=== PATIENT | male | born 1955 | race Two or more races ===

== ENCOUNTER 2016-10-21 16:11 | Inpatient (IN) | payer BC, OTHER ==
[~2016-10-21] VITALS: Ht 186.7 cm; Wt 98.5 kg
--- NOTE | 2016-10-21 16:39 | ERA ---
ER Documentation Chief Complaint Date/Time DATE: 10/21/16 TIME: 16:27 Chief Complaint HPI 61-year-old male with history of gout and left bundle branch block and syncope presents to the ED via rescue ambulance from his [employer], Dr Esparza, for evaluation of shortness of breath and heart block. Patient was actually scheduled for pacemaker placement tomorrow. Over the last week he has noticed intermittent episodes of chest heaviness with shortness of breath, exertional dyspnea and occasional PND. Currently asymptomatic. Denies abdominal pain, nausea, vomiting, diarrhea or constipation. No URI symptoms or cough. No leg pain or swelling. Denies headache, visual changes, focal weakness or numbness. No fevers or chills. ROS All systems reviewed and are negative except as per history of present illness. Medications Home Meds No Active Prescriptions or Reported Meds Allergies Allergies: Coded Allergies: No Known Allergy (Unverified , 10/21/16) PMhx/Soc Reviewed in chart. As per HPI. Anesthesia Reaction: No Hx Neurological Disorder: Yes (Syncope) Hx Respiratory Disorders: Yes Hx Cardiac Disorders: Yes (Left bundle branch block.) Hx Psychiatric Problems: No Hx Miscellaneous Medical Probl: Yes (Gout) Hx Alcohol Use: Yes (Wine, moderate intake for approximately 20 years.) Hx Substance Use: No Hx Tobacco Use: Yes Smoking Status: Current every day smoker (Less than a pack a day for over 20 years.) FmHx Father: of an NV at the age of 62. Mother: in her late 80s, dementia. No family history of cancer or diabetes. Physical Exam Vitals Vital Signs Date Time Temp Pulse Resp B/P Pulse Ox O2 Delivery O2 Flow Rate FiO2 10/21/16 18:25 37 18 135/67 100 Room Air 10/21/16 16:37 97.9 39 20 123/73 98 Physical Exam Const: Alert, moderate distress. Head: Atraumatic Eyes: Normal Conjunctiva ENT: Normal External Ears, Nose and Mouth. Neck: Full range of motion. No JVD. No meningismus. Resp: Breath sounds are equal and clear to auscultation bilaterally. No rales rhonchi or wheezes. Cardio: Bradycardic. Regular rate and rhythm, no murmurs, gallops or rubs. Abd: Soft, non tender, non distended. Normal bowel sounds. No masses or abnormal pulsations. No rebound or guarding. Skin: No petechiae or rashes Back: No midline or flank tenderness Ext: No cyanosis, or edema Neur: Awake and alert. No focal deficit observed. Psych: Normal Mood and Affect Result Diagram: 10/21/16 1640 10/22/16 0505 Results 24 hrs Laboratory Tests Test 10/21/16 16:40 White Blood Count 12.310^3/ul Red Blood Count 4.8410^6/ul Hemoglobin 14.2g/dl Hematocrit 42.3% Mean Corpuscular Volume 87.4fl Mean Corpuscular Hemoglobin 29.3pg Mean Corpuscular Hemoglobin Concent 33.6g/dl Red Cell Distribution Width 12.8% Platelet Count 15068^3/UL Mean Platelet Volume 11.4fl Neutrophils % 38.0% Band Neutrophils % 1.0% Lymphocytes % 53.0% Monocytes % 5.0% Eosinophils % 3.0% Neutrophils # 4.710^3/ul Lymphocytes # 6.510^3/ul Monocytes # 0.610^3/ul Eosinophils # 0.410^3/ul Platelet Estimate PLT APPEAR ADEQUATE Large Platelets RARE Prothrombin Time 12.8Sec Prothrombin Time Ratio 1.0 INR International Normalized Ratio 0.96 Activated Partial Thromboplast Time 33.2Sec Sodium Level 142mmol/L Potassium Level 3.9mmol/L Chloride Level 106mmol/L Carbon Dioxide Level 22mmol/L Anion Gap 18 Blood Urea Nitrogen 16mg/dl Creatinine 1.11mg/dl Glucose Level 104mg/dl Calcium Level 9.1mg/dl Magnesium Level 1.8mg/dl Total Bilirubin 0.4mg/dl Direct Bilirubin 0.00mg/dl Indirect Bilirubin 0.4mg/dl Aspartate Amino Transf (AST/SGOT) 75IU/L Alanine Aminotransferase (ALT/SGPT) 140IU/L Alkaline Phosphatase 48IU/L Troponin I < 0.012ng/ml Total Protein 7.0g/dl Albumin 4.1g/dl Globulin 2.90g/dl Albumin/Globulin Ratio 1.41 Ethyl Alcohol Level < 10.0mg/dl RHYTHM STRIP INTERPRETATION: Time: 16:30. A-V dissociation. Ventricular rate 40. No ectopy. Indication: Shortness of breath. EKG: TIME: 16: 15. Complete heart block with AV dissociation and idioventricular rhythm. Ventricular rate 39. Right bundle branch block. No acute ST segment elevation or depression. No ectopy. EP Interpretation: Abnormal EKG. IMAGING: PROCEDURE: Chest Radiograph. CLINICAL INDICATION: Chest pain TECHNIQUE: Single frontal chest radiograph. COMPARISON: None available FINDINGS: A pacer pad is seen overlying the left hemithorax. Heart size is within normal limits. Atherosclerotic calcifications are present. No infiltrate or effusion is seen. The bones are intact. IMPRESSION: 1. No evidence of acute cardiopulmonary disease. 2. Atherosclerotic vascular disease. RPTAT: HJBF .Dino Casanova MD, MD Date Time Electronically viewed and signed by .Dino Casanova MD, on 2016 17:04 .B/ Procedures/MDM DOCUMENTS REVIEWED: ED nurse, office notes. ED COURSE: IV saline lock. External pacer on standby. REEXAMINATION/REEVALUATION: Time: 16:55. Patient complaining of mild chest heaviness and mild dyspnea. Heart rate is 38. Blood pressure:134/78. Repeat EKG at 17: 03 essentially unchanged. Complete heart block with idioventricular rhythm at a rate of 38. Right bundle branch block. No acute ST-T wave changes. No ectopy. MEDICAL DECISION MAKIN-year-old male with history of gout and left bundle branch block and syncope presents to the ED via rescue ambulance from his [employer], Dr Esparza, for evaluation of shortness of breath and heart block. Patient in complete heart block with AV dissociation and idioventricular rhythm although is maintaining his blood pressure. No ischemic EKG changes, elevated troponin or other signs of acute coronary syndrome. Patient does not take any beta-blockers or calcium channel blockers. No acute electrolyte abnormalities. An external pacer was placed on standby. Chest pain and shortness of breath likely due to bradycardia but no ischemic EKG changes or elevated troponin. Chest x-ray is normal without effusions or infiltrates. Doubt pulmonary embolism. He will be admitted to the ICU for urgent pacemaker placement, further evaluation and management. Counseled patient and family regarding diagnosis, diagnostic results and plan for admission. CALLS/CONSULTS: Time 16:30, Dr. Cruz, Recommends admission to ICU, will consult. CALLS/CONSULTS: Time 16:350, Dr Estrella. Requests patient be admitted to Dr. Grubbs. PATIENT CARE TRANSITIONED: Time: 16:55, Dr. Grubbs. CRITICAL CARE TIME: Due to the high probability of sudden clinically significant hemodynamic, cardiovascular and respiratory deterioration, this patient with complete heart block with AV disassociation required multiple, frequent reevaluations of vital signs and response to therapy. Additional critical care time was spent in review of office records and consultation with cardiology, Dr. Cruz, Dr. Estrella and the admitting physician Dr. Grubbs. TOTAL CRITICAL CARE TIME: 35 minutes not including other separately reportable procedures. Departure Diagnosis: Primary Impression: Complete heart block Additional Impressions: AV dissociation Idioventricular rhythm Chest pain Qualified Code: R07.9 - Chest pain, unspecified type Condition: Critical CYNTHIA CHOI MD October 21, 2016 16:39
[2016-10-21 16:53] LABS: ADD SCAN DIFF NO
[2016-10-21 17:02] LABS: ABNORMAL IP MESSAGE 1; HEMATOCRIT 42.3 % (42.0-52.0); HEMOGLOBIN 14.2 g/dl (14.0-18.0); MEAN CORPUSCULAR HEMOGLOBIN 29.3 pg (29.0-33.0); MEAN CORPUSCULAR HGB CONC 33.6 g/dl (32.0-37.0); MEAN CORPUSCULAR VOLUME 87.4 fl (82.0-101.0); MEAN PLATELET VOLUME 11.4 fl (7.4-10.4); PLATELET COUNT 193 10^3/UL (140-415); RED BLOOD COUNT 4.84 10^6/ul (4.70-6.10); RED CELL DISTRIBUTION WIDTH 12.8 % (11.5-14.5); WHITE BLOOD COUNT 12.3 10^3/ul (4.8-10.8)
--- NOTE | 2016-10-21 17:05 | RADRPT ---
PROCEDURE: Chest Radiograph. CLINICAL INDICATION: Chest pain TECHNIQUE: Single frontal chest radiograph. COMPARISON: None available FINDINGS: A pacer pad is seen overlying the left hemithorax. Heart size is within normal limits. Atheroscler otic calcifications are present. No infiltrate or effusion is seen. The bones are intact. IMPRESSION: 1. No evidence of acute cardiopulmonary disease. 2. Atherosclerotic vascular disease. RPTAT: HJBF .Dino Casanova MD, MD Date Time Electronically viewed and signed by .Dino Casanova MD, MD on 10/21/2016 17:04 .B/
[2016-10-21 17:15] LABS: ALBUMIN 4.1 g/dl (3.3-4.9); CHLORIDE 106 mmol/L (97-110)
[2016-10-21 17:16] LABS: INR 0.96; POTASSIUM 3.9 mmol/L (3.5-5.1); PROTIME 12.8 Sec (12.2-14.2); SODIUM 142 mmol/L (135-144)
[2016-10-21 17:17] LABS: PARTIAL THROMBOPLASTIN TIME 33.2 Sec (25.0-35.0)
[2016-10-21 17:18] LABS: ALBUMIN/GLOBULIN RATIO 1.41; ALKALINE PHOSPHATASE 48 IU/L (42-121); ANION GAP 18 (8-16); ASPARTATE AMINO TRANSFERASE 75 IU/L (15-46); BILIRUBIN,INDIRECT 0.4 mg/dl (0-1.1); BILIRUBIN,TOTAL 0.4 mg/dl (0.2-1.3); BLOOD UREA NITROGEN 16 mg/dl (7-20); CARBON DIOXIDE 22 mmol/L (21-31); CREATININE 1.11 mg/dl (0.61-1.24)
[2016-10-21 17:19] LABS: ALANINE AMINOTRANSFERASE 140 IU/L (13-69); CALCIUM 9.1 mg/dl (8.4-10.2); GLUCOSE 104 mg/dl (70-220)
[2016-10-21 17:37] LABS: TROPONIN-I < 0.012 ng/ml (0.00-0.12)
[2016-10-21] MEDS ORDERED: ONDANSETRON 4 MG INJ IV PRN (19:00)
[2016-10-21] MEDS ORDERED: ZOLPIDEM 5 MG TAB PO PRN (19:00)
[2016-10-21 19:22] LABS: EOSINOPHILS # 0.4 10^3/ul (0.0-0.5); LYMPHOCYTES # 6.5 10^3/ul (0.8-2.9); MONOCYTE # 0.6 10^3/ul (0.3-0.9); NEUTROPHIL # 4.7 10^3/ul (1.6-7.5)
[2016-10-21 19:23] LABS: PLATELET ESTIMATE PLT APPEAR ADEQUATE
[2016-10-21] MEDS ORDERED: ATROPINE 1 MG/10 ML SYRINGE IV ONE (20:00)
[2016-10-21 21:07] VITALS: PULSE 40
[2016-10-21 21:25] VITALS: Ht 186.7 cm; Wt 98.5 kg
[2016-10-21] MEDS: D5W-0.45 NACL + KCL 20 MEQ 1,000 ML IV SCH (21:59)
[2016-10-21 22:00] VITALS: BP 128/68; PULSE 42; RESP 27
--- NOTE | 2016-10-21 22:29 | CONS ---
DATE OF ADMISSION: 10/21/2016 DATE OF CONSULTATION: 10/21/2016 REASON FOR CONSULTATION: Heart block with bradycardia. REQUESTING PHYSICIAN: Dr. Ayala, Dr. Banegas. HISTORY OF PRESENT ILLNESS: Mr. De La Fuente is a 61-year-old male with a history of ongoing tobacco usa ge, current episodes of syncope, and allergic rhinitis who had noted to have recurring episodes of s yncope dating back to 05/2016 for which he was evaluated in the emergency department at [place] and was told that he did have a slow heart rate and pauses, but did not want to stay at the hospital. T he patient then states that he has had recurrent syncopal episodes, as recently a month ago x2 to 3 [address] his house. Each time, he states that he feels a general bowen of blood over his body, gener alized weakness, and then loses consciousness. Additionally, over the last 2 to 3 days, the patient has had some episodes of substernal chest pain described as a pressure-like sensation associated wi th shortness of breath and generalized fatigue. The patient states he noticed 2 to 3 days ago his h eart rate was approximately 40 and was not changing. Therefore, he presented to his primary cardiol ogist's office where he was referred to the emergency department here at [facility]. Upon arrival, temperature 97.9, pulse 39, blood pressure 123/73, respiratory rate 22, saturating 98%. Th e patient's labs revealed white count 12.3, hemoglobin 14.2, platelet count 193. The sodium 142, po tassium 3.9, creatinine 1.1, BUN 16, AST 75, ALT 140. Troponin negative. INR 0.96. Tox screen neg ative. The patient underwent a chest x-ray revealing no evidence of acute cardiopulmonary disease, atherosclerotic vascular disease. The patient's electrocardiogram revealed rhythm most consistent w ith, on EKG at least, complete heart block with escape rhythm at approximately 40 with a right bundl e branch block pattern secondary to repolarization abnormalities. Additionally, on telemetry, the p atient has had episodes of 2:1 AV block with heart rates still in the 40s and additional ongoing epi sodes of complete heart block with AV disassociation. The patient at this time states he has some i ntermittent episodes of chest pain. PAST MEDICAL HISTORY: As above in HPI. MEDICATIONS CURRENTLY IN HOSPITAL: 1. Tylenol. 2. Ambien. 3. Zofran. MEDICATIONS PRIOR TO ADMIT: 1. Aspirin. 2. Flonase. 3. PRN Viagra. SOCIAL HISTORY: Ongoing tobacco usage, social ETOH, no illicit drug use. FAMILY HISTORY: No history of sudden cardiac or early CAD. REVIEW OF SYSTEMS: As above in HPI. CONSTITUTIONAL: No fevers, chills. PULMONARY: Intermittent shortness of breath. CARDIOVASCULAR: Heart block, symptomatic bradycardia. GASTROINTESTINAL: No vomiting. GENITOURINARY: No hematuria. MUSCULOSKELETAL: Degenerative joint disease. PSYCHIATRIC: No documented psych history. NEUROLOGIC: No documented history of CVA. Positive recurrent episodes of syncope. PHYSICAL EXAMINATION: VITAL SIGNS: Temperature 97.9, blood pressure 135/67, pulse 37, respiratory 18, saturation 100%. GENERAL: The patient is alert, awake, complaining of intermittent substernal chest pain. NECK: JVP approximately 8 to 9 cm water. CHEST: Fair air movement throughout. HEART: Bradycardic. Regular rhythm. Normal S1, S2, I/ systolic murmur. ABDOMEN: Positive bowel sounds, soft. EXTREMITIES: No pitting edema, 1+ pulses bilaterally posterior tibial. LABORATORY DATA: As above in HPI. No further labs for my review at this time. IMAGING STUDIES: As above in HPI. No further imaging studies for my review at this time. ELECTROCARDIOGRAM: As above in HPI. No further electrocardiograms for my review at this time. IMPRESSION: 1. Heart block with episodes 2:1 block and complete heart block as well and escape rhythm in approx imately high 30s to 40s consistent with symptomatic bradycardia. 2. Chest pain, assess for acute coronary syndrome. 3. Shortness of breath, assess for congestive heart failure likely related to the patient's bradyca rdia. 4. Abnormal electrocardiogram, assess for acute coronary syndrome. 5. Hypertension, borderline. 6. Ongoing tobacco usage. 7. Bundle branch block. RECOMMENDATIONS: 1. At this time, would admit patient to ICU for close observation. 2. Would complete a rule out for myocardial infarction to ensure that the patient's chest pain is n ot indicative of acute coronary syndrome lending to the patient's constellation of symptoms. 3. We will continue to check serial EKGs to assess for any significant ongoing changes. EKG in the morning, EKG for complaints of chest pain or change in rhythm. 4. Check a 2D echocardiogram to further assess patient's ejection fraction, wall motion, and major valve abnormalities. 5. Check a BNP to further assess patient's current volume status. 6. Follow the patient's LFTs closely, elevated. 7. Maintain the patient's pacer pads with a backup rate, but would not initiate pacing on this dinora ent unless patient becomes more symptomatic at rest, as the patient is awake with stable blood press ure. 8. Atropine at bedside. 9. NPO after midnight with the patient scheduled for permanent pacemaker to take place first thing tomorrow. 10. Additionally, check a TSH to rule out subclinical hypothyroidism contributing to the patient's current bradyarrhythmias. Thank you for allowing me to take part in the care of this patient. I will continue to follow him [place] closely with you with further recommendations to be made as the patient progresses through his [facility] clinical course. Dictated By: DAVID CHRISTIE/YAYA Conf#: [id number] DID#: [id number] CC: TIFFANIE AYALA MD; Dr. Banegas; ZENIA GRAHAM MD;*End*
[2016-10-21 22:40] LABS: CREATINE KINASE 62 IU/L (23-200)
[2016-10-21 22:56] LABS: CK-MB 0.56 ng/ml (0.0-2.4); TROPONIN-I < 0.012 ng/ml (0.00-0.12)
[2016-10-21 23:00] VITALS: BP 144/59; PULSE 37; RESP 15
[2016-10-22] VITALS (36 sets, daily range): BP systolic 82–176; BP diastolic 44–138; PULSE 35–90; RESP 11–35
--- NOTE | 2016-10-22 03:22 | HP ---
DATE OF ADMISSION: 10/21/2016 HISTORY OF PRESENT ILLNESS: The patient is a 61-year-old gentleman with a history of syncope in the past and is being followed by Dr. Banegas from cardiology standpoint. The patient was feeling weak a nd slightly dizzy and was sent to ER at [facility]. The patient was noted to be i n complete heart block with ventricular rate in the 30s. The patient, however, maintained her vital signs and did not have any chest pain. The patient did feel slight lightheadedness. No reported s eizures. No history of thyroid disorder. No history of diabetes, hypertension, or any known martines ry artery disease. The patient denied any history of shortness of breath on exertion. No reported leg edema. No reported orthopnea. The patient ____ for further evaluation and management. PAST SURGICAL HISTORY: None. ALLERGIES: NONE. SOCIAL HISTORY: The patient smokes 4 to 5 cigarettes per day. No significant history of alcohol. PAST MEDICAL HISTORY: The patient has history of gout but has not had any flare-up recently and is not on any medication for that. FAMILY HISTORY: Noncontributory. PHYSICAL EXAMINATION: GENERAL: The patient is conscious, awake, alert. VITAL SIGNS: In the ER, blood pressure 123/73, pulse 39, respirations 20, temperature 97.9, O2 satu ration 98% on room air. HEENT: No eye discharge or redness. Oropharynx clear. NECK: No mass, no lymph, no thyromegaly. CHEST: Fairly clear. CARDIOVASCULAR: S1, S2 normal. No murmur. ABDOMEN: Soft, nondistended, nontender. Bowel sounds present. EXTREMITIES: No leg edema. NEUROLOGIC: The patient is awake, alert, fairly oriented with no gross focal deficit. LABORATORY DATA: WBC 12.3, hemoglobin 14.2, platelets 193. Sodium 142, potassium 3.9, BUN 16, crea tinine 1.1, glucose 104. Coagulation profile unremarkable. IMPRESSION: Complete heart block. PLAN: Plan of care discussed with Dr. Estrella who will see the patient from cardiac standpoint. Pl an is to take him to OR tomorrow for permanent pacemaker placement which will be done by Dr. Douglas Medina. We will continue supportive care until then. The patient will be admitted in ICU due to comp lete heart block. Further recommendations will depend on the patient's hospital course. We will do followup CBC. The patient did have slight elevation of liver enzymes on chemistry with AST of 75, ALT of 140, alkaline phosphatase is normal. Troponin is negative. We will do followup labs in the morning. Dictated By: ZENIA KRISHNA/YAYA Conf#: [id number] DID#: [id number]
[2016-10-22 05:30] LABS: ADD SCAN DIFF NO
[2016-10-22 05:54] LABS: ALBUMIN 3.6 g/dl (3.3-4.9); ALBUMIN/GLOBULIN RATIO 1.28; BILIRUBIN,INDIRECT 0.2 mg/dl (0-1.1); BILIRUBIN,TOTAL 0.2 mg/dl (0.2-1.3); CALCIUM 8.8 mg/dl (8.4-10.2); CHOL/HDL RATIO 7.8 RATIO; CREATININE 1.07 mg/dl (0.61-1.24); POTASSIUM 4.5 mmol/L (3.5-5.1); TOTAL PROTEIN 6.4 g/dl (6.1-8.1)
[2016-10-22 06:01] LABS: INR 0.92; PROTIME 12.4 Sec (12.2-14.2)
[2016-10-22 06:02] LABS: PARTIAL THROMBOPLASTIN TIME 25.2 Sec (25.0-35.0)
[2016-10-22 06:08] LABS: TROPONIN-I 0.017 ng/ml (0.00-0.12)
[2016-10-22 06:09] LABS: CK-MB 0.53 ng/ml (0.0-2.4)
[2016-10-22 06:23] LABS: THYROID STIMULATING HORMONE 2.78 MIU/L (0.465-4.680)
[2016-10-22] MEDS: ACETAMINOPHEN 500 MG TAB PO PRN ×2 (07:28→07:29)
[2016-10-22] MEDS ORDERED: POLYMYXIN/BACITRACIN 1L IRRIG IRR SCH (08:00)
[2016-10-22] MEDS: D5W-0.45 NACL + KCL 20 MEQ 1,000 ML IV SCH ×2 (08:20→11:18)
[2016-10-22 10:21] LABS: ABNORMAL IP MESSAGE 1; BASOPHIL # 0.1 10^3/ul (0.0-0.1); BASOPHILS % 0.6 % (0.0-2.0); EOSINOPHILS # 0.3 10^3/ul (0.0-0.5); EOSINOPHILS % 3.1 % (0.0-7.0); HEMATOCRIT 40.2 % (42.0-52.0); HEMOGLOBIN 13.3 g/dl (14.0-18.0); LYMPHOCYTES # 5.9 10^3/ul (0.8-2.9); LYMPHOCYTES % 57.2 % (15.0-51.0); MEAN CORPUSCULAR HEMOGLOBIN 29.9 pg (29.0-33.0); MEAN CORPUSCULAR HGB CONC 33.1 g/dl (32.0-37.0); MEAN CORPUSCULAR VOLUME 90.3 fl (82.0-101.0); MEAN PLATELET VOLUME 12.6 fl (7.4-10.4); MONOCYTE # 0.8 10^3/ul (0.3-0.9); MONOCYTES % 7.9 % (0.0-11.0); NEUTROPHIL # 3.2 10^3/ul (1.6-7.5); RED BLOOD COUNT 4.45 10^6/ul (4.70-6.10); RED CELL DISTRIBUTION WIDTH 12.8 % (11.5-14.5); WHITE BLOOD COUNT 10.3 10^3/ul (4.8-10.8)
[2016-10-22 10:24] LABS: PLATELET COUNT 139 10^3/UL (140-415)
--- NOTE | 2016-10-22 10:44 | CONS ---
Date/Time of Note Date/Time of Note DATE: 10/22/16 TIME: 10:35 Assessment/Plan Assessment/Plan Chief Complaint/Hosp Course IMPRESSION: 1. Heart block with episodes 2:1 block and complete heart block as well and escape rhythm in approximately high 30s to 40s with symptomatic bradycardia. 2. Chest pain, assess for acute coronary syndrome.-negative troponin x 3/ improved symptoms 3. Shortness of breath, assess for congestive heart failure likely related to the patient's bradycardia. 4. Abnormal electrocardiogram, assess for acute coronary syndrome. 5. Hypertension, borderline. 6. Ongoing tobacco usage. 7. Bundle branch block. Recc: -Tele -serial ecg's -For PPM today Problems: Consultation Date/Type/Reason Admit Date/Time October 21, 2016 at 18:55 Initial Consult Date 10/21/2016 Type of Consultation: Cardiology Reason for Consultation Heart Block Referring Provider: OLGA MCCRAY MD Exam/Review of Systems Vital Signs Vitals Vital Signs Date Time Temp Pulse Resp B/P Pulse Ox O2 Delivery O2 Flow Rate FiO2 10/22/16 09:30 36 16 96 10/22/16 09:00 144/76 10/22/16 06:00 Room Air 10/22/16 04:00 97.8 Intake and Output 10/21/16 10/21/16 10/22/16 15:00 23:00 07:00 Intake Total 270 ml 525 ml Output Total 325 ml 400 ml Balance -55 ml 125 ml Exam Review of Systems: CONSTITUTIONAL: No fevers, chills. PULMONARY: No sob CARDIOVASCULAR: No chest pain/palpitations GASTROINTESTINAL: No nausea/vomiting. GENITOURINARY: No hematuria/dysuria. MUSCULOSKELETAL: No myagias/arthalgias. PSYCHIATRIC: The patient denies depression. NEUROLOGIC: mild generalized weakness Constitutional: alert Psych: no complaints Head: normocephalic ENMT: mucosa pink and moist Neck: jvd (8 -9 cm water), supple Respiratory: clear to auscultation Cardiovascular: other (bradycardia, regular rhythm) Gastrointestinal: non-tender, soft Musculoskeletal: muscle tone (normal) Extremities: edema (none) Neurological: other (No focal deficits) Results Result Diagram: 10/22/16 0505 10/22/16 0508 Results 24 hrs Laboratory Tests Test 10/21/16 16:40 10/21/16 22:11 10/22/16 05:05 White Blood Count 12.3 H 10.3 Red Blood Count 4.84 4.45 L Hemoglobin 14.2 13.3 L Hematocrit 42.3 40.2 L Mean Corpuscular Volume 87.4 90.3 Mean Corpuscular Hemoglobin 29.3 29.9 Mean Corpuscular Hemoglobin Concent 33.6 33.1 Red Cell Distribution Width 12.8 12.8 Platelet Count 193 139 #L Mean Platelet Volume 11.4 H 12.6 H Neutrophils % 38.0 L 31.0 L Band Neutrophils % 1.0 Lymphocytes % 53.0 H 57.2 H Monocytes % 5.0 7.9 Eosinophils % 3.0 3.1 Neutrophils # 4.7 3.2 Lymphocytes # 6.5 H 5.9 H Monocytes # 0.6 0.8 Eosinophils # 0.4 0.3 Platelet Estimate PLT APPEAR ADEQUATE Large Platelets RARE Prothrombin Time 12.8 12.4 Prothrombin Time Ratio 1.0 1.0 INR International Normalized Ratio 0.96 0.92 Activated Partial Thromboplast Time 33.2 25.2 Sodium Level 142 138 Potassium Level 3.9 4.5 Chloride Level 106 111 H Carbon Dioxide Level 22 22 Anion Gap 18 H 10 # Blood Urea Nitrogen 16 19 Creatinine 1.11 1.07 Glucose Level 104 107 Calcium Level 9.1 8.8 Magnesium Level 1.8 Total Bilirubin 0.4 0.2 Direct Bilirubin 0.00 0.00 Indirect Bilirubin 0.4 0.2 Aspartate Amino Transf (AST/SGOT) 75 H 73 H Alanine Aminotransferase (ALT/SGPT) 140 H 122 H Alkaline Phosphatase 48 37 L Troponin I < 0.012 < 0.012 0.017 Total Protein 7.0 6.4 Albumin 4.1 3.6 Globulin 2.90 2.80 Albumin/Globulin Ratio 1.41 1.28 Ethyl Alcohol Level < 10.0 Creatine Kinase 62 66 Creatine Kinase Index 0.9 0.8 Creatinine Kinase MB (Mass) 0.56 0.53 Basophils % 0.6 Nucleated Red Blood Cells % 0.0 Basophils # 0.1 Nucleated Red Blood Cells # 0.0 Triglycerides Level 267 H Cholesterol Level 150 LDL Cholesterol, Calculated 78 HDL Cholesterol 19 L Cholesterol/HDL Ratio 7.8 Thyroid Stimulating Hormone (TSH) 2.780 Medications Medications Current Medications Acetaminophen 500 mg 500 mg Q4H PRN PO PAIN AND OR ELEVATED TEMP Last administered on 10/22/16 07:29; Admin Dose 500 MG; Start 10/21/16 at 19:00 Potassium Chloride/Dextrose/ Sod Cl (D5-1/2ns + KCl 20 Meq) 1,000 ml @ 75 mls/ hr [id number] IV Last administered on 10/21/16 21:59; Admin Dose 75 MLS/HR; Start 10/21/16 at 19:00 Zolpidem Tartrate (Ambien) 5 mg HS PRN PO INSOMNIA Last administered on 23:46; Admin Dose 5 MG; Start 10/21/16 at 19:00 Ondansetron HCl (Zofran Inj) 4 mg Q6H PRN IV NAUSEA AND/OR VOMITING; Start 10/21 at 19:00 Bacitracin/ Polymyxin B Sulfate (Pb Solution) 1,000 ml ONCE IRR ; Start 10/22/16 at 08:00; Stop 10/22/16 at 13:00 DAVID GAGE October 22, 2016 10:44
[2016-10-22] MEDS ORDERED: EPHEDrine SULFATE 50 MG/5 ML SYG IV PRN ×2 (12:30→17:00)
[2016-10-22] MEDS ORDERED: MEPERIDINE 25 MG INJ IV PRN (12:30)
[2016-10-22] MEDS ORDERED: FENTAnyl 50 MCG/ML VIAL IV PRN ×3 (12:30)
[2016-10-22] MEDS ORDERED: hydrALAzine 20 MG INJ IV PRN ×2 (12:30→17:00)
[2016-10-22] MEDS ORDERED: LABETALOL HCL 20MG INJ IV PRN (12:30)
[2016-10-22] MEDS ORDERED: ONDANSETRON 4 MG INJ IV PRN ×2 (12:30→17:00)
[2016-10-22] MEDS ORDERED: DIPHENHYDRAMINE 50 MG INJ IV PRN ×2 (12:30→20:30)
[2016-10-22] MEDS ORDERED: FENTAnyl 50 MCG/ML VIAL ONE (12:31)
[2016-10-22] MEDS ORDERED: PROPOFOL 100 ML ONE (12:31)
[2016-10-22] MEDS ORDERED: LIDOCAINE 2% (SDV) 5 ML INJ ONE (12:31)
[2016-10-22] MEDS ORDERED: BUPIVACAINE 0.5% (SDV) 30 ML INJ ONE ×2 (13:41→17:05)
[2016-10-22] MEDS ORDERED: IODIXANOL LOCM 50 ML BTL ONE ×3 (13:41→17:02)
[2016-10-22] MEDS ORDERED: LIDOCAINE 1% (MDV) 20 ML INJ ONE (13:41)
[2016-10-22] MEDS ORDERED: SOD CHLORIDE 0.9% 500 ML ONE (13:41)
[2016-10-22] MEDS ORDERED: CEFAZOLIN 2 GM/50 ML (PMX) 50 ML IVPB ONE (13:41)
--- NOTE | 2016-10-22 14:04 | CONS ---
DATE OF ADMISSION: 10/21/2016 DATE OF CONSULTATION: 10/22/2016 TYPE OF CONSULTATION: Electrophysiology. REFERRING PHYSICIAN: Dr. Zenia Graham and Dr. Banegas REASON FOR EVALUATION: Complete heart block, evaluation for pacemaker. HISTORY OF PRESENT ILLNESS: Mr. De La Fuente is a 61-year-old gentleman with history of hypertension, hi story of congenital left bundle bunch block who was seen by Dr. Banegas in his office yesterday. The patient presented to the office for evaluation of dizziness and fall. The patient was noted to be i n complete heart block and the patient was transferred to [facility] for immediate evaluation. The patient is still in complete heart block, his heart rate is in the mid 30s, he is symptomatic. The patient has class I indication for pacemaker placement. The risks, benefits and al ternatives of procedure have been extensively discussed with the patient and he is agreeable to proc eed. We will facilitate pacemaker placement shortly. PAST MEDICAL HISTORY: 1. History of hypertension. 2. History of congenital left bundle bunch block. 3. Now history of complete heart block. ALLERGIES: NO KNOWN DRUG ALLERGIES. SOCIAL HISTORY: The patient does not smoke, does not drink, does not use any drugs. FAMILY HISTORY: Negative for sudden cardiac . There is history of coronary artery disease. MEDICATIONS: The patient is not on any AV alonso blocking agents. REVIEW OF SYSTEMS: CONSTITUTIONAL: No fevers, no chills. Dizziness and syncope as described. HEENT: No changes in vision or hearing. CARDIAC: No chest pain reported now. RESPIRATORY: No shortness of breath. GASTROINTESTINAL: No nausea, vomiting, diarrhea, constipation. GENITOURINARY: No dysuria, hematuria. NEUROLOGIC: No focal neurologic deficits. HEMATOLOGIC: No bruising. PSYCHIATRIC: No known history of psychiatric illness. PHYSICAL EXAMINATION: VITAL SIGNS: Heart rate is 37 in complete heart block. His blood pressure 130/80. GENERAL: He is a well-nourished gentleman in no acute distress, alert and oriented x3, aware of his condition. HEAD: Normocephalic, atraumatic. Eyes anicteric. NECK: Supple. JVD 6-7 cm. There is no lymphadenopathy or thyromegaly. HEART: Regular, soft. holosystolic murmur mid chest, changes with respiration. PMI is nondisplaced. There is no S3. LUNGS: Coarse at bases. ABDOMEN: Distended, bowel sounds are present. There is no hepatosplenomegaly. GENITOURINARY: Intact. EXTREMITIES: Show no clubbing, cyanosis, edema. SKIN: Does not show any discoloration. NEUROLOGICAL: He is able to move his extremities. LABORATORY DATA: Creatinine 0.7. Troponin is negative. ASSESSMENT AND PLAN: 1. Complete heart block. Patient is in complete heart block, has class I indication for a pacemake r placement. Currently, the patient is hemodynamically stable. Risks, benefits and alternatives of procedure were outlined to the patient, he is agreeable to proceed. We will facilitate the pacemak er placement shortly. 2. Congenital heart disease. The patient has congenital heart disease. There is no obvious muscul ar anomaly. Dr. Estrella will review a 2D echo. For now, will continue medical optimization and care, pacemaker pending. 3. Hypertension. Blood pressure well controlled, will not add any additional agents now given sign ificant bradycardia. 4. Abnormal EKG as described above. Complete heart block, pacemaker is pending. I would like to thank Dr. Banegas and Dr. Graham for referring this patient for my evaluation. Dictated By: TIFFANIE AYALA MD ML/NTS Conf#: [id number] DID#: [id number] CC: OLGA BANEGAS MD; ZENIA GRAHAM MD;*EndCC*
[2016-10-22] MEDS ORDERED: DOPamine-D5W 1.6 MG/ML 250 ML ONE (14:12)
[2016-10-22] MEDS ORDERED: ATROPINE 1 MG/10 ML SYRINGE ONE (14:12)
--- NOTE | 2016-10-22 14:44 | PN ---
Date/Time of Note Date/Time of Note DATE: 10/22/16 TIME: 14:41 Assessment/Plan VTE Prophylaxis VTE Prophylaxis Intervention: SCD's Lines/Catheters IV Catheter Type (from Rust): Saline Lock Urinary Cath still in place: No Assessment/Plan Assessment/Plan - Heart block with episodes 2:1 block and complete heart block as well and escape rhythm in approximately high 30s to 40s with symptomatic bradycardia. Patient is undergoing pacemaker placement by Dr. Cruz, continue to monitor in ICU postoperatively. - Chest pain, assess for acute coronary syndrome. Troponin negative 3. -Tobacco dependence, tobacco cessation is strongly advised. Subjective 24 Hr Interval Summary Free Text/Dictation Patient was taking to or off for permanent pacemaker placement for complete heart block block with bradycardia. No acute events reported prior to procedure patient continued to be monitored in ICU with heart rate being in the 30s. Exam/Review of Systems Vital Signs Vitals Vital Signs Date Time Temp Pulse Resp B/P Pulse Ox O2 Delivery O2 Flow Rate FiO2 10/22/16 12:00 36 10/22/16 11:30 98.1 17 99 10/22/16 11:00 103/65 Room Air Intake and Output 10/21/16 10/21/16 10/22/16 15:00 23:00 07:00 Intake Total 270 ml 600 ml Output Total 325 ml 400 ml Balance -55 ml 200 ml Results Result Diagram: 10/22/16 0505 10/22/16 0505 Results 24 hrs Laboratory Tests Test 10/21/16 16:40 10/21/16 22:11 10/22/16 05:05 White Blood Count 12.3 H 10.3 Red Blood Count 4.84 4.45 L Hemoglobin 14.2 13.3 L Hematocrit 42.3 40.2 L Mean Corpuscular Volume 87.4 90.3 Mean Corpuscular Hemoglobin 29.3 29.9 Mean Corpuscular Hemoglobin Concent 33.6 33.1 Red Cell Distribution Width 12.8 12.8 Platelet Count 193 139 #L Mean Platelet Volume 11.4 H 12.6 H Neutrophils % 38.0 L 31.0 L Band Neutrophils % 1.0 Lymphocytes % 53.0 H 57.2 H Monocytes % 5.0 7.9 Eosinophils % 3.0 3.1 Neutrophils # 4.7 3.2 Lymphocytes # 6.5 H 5.9 H Monocytes # 0.6 0.8 Eosinophils # 0.4 0.3 Platelet Estimate PLT APPEAR ADEQUATE Large Platelets RARE Prothrombin Time 12.8 12.4 Prothrombin Time Ratio 1.0 1.0 INR International Normalized Ratio 0.96 0.92 Activated Partial Thromboplast Time 33.2 25.2 Sodium Level 142 138 Potassium Level 3.9 4.5 Chloride Level 106 111 H Carbon Dioxide Level 22 22 Anion Gap 18 H 10 # Blood Urea Nitrogen 16 19 Creatinine 1.11 1.07 Glucose Level 104 107 Calcium Level 9.1 8.8 Magnesium Level 1.8 Total Bilirubin 0.4 0.2 Direct Bilirubin 0.00 0.00 Indirect Bilirubin 0.4 0.2 Aspartate Amino Transf (AST/SGOT) 75 H 73 H Alanine Aminotransferase (ALT/SGPT) 140 H 122 H Alkaline Phosphatase 48 37 L Troponin I < 0.012 < 0.012 0.017 Total Protein 7.0 6.4 Albumin 4.1 3.6 Globulin 2.90 2.80 Albumin/Globulin Ratio 1.41 1.28 Ethyl Alcohol Level < 10.0 Creatine Kinase 62 66 Creatine Kinase Index 0.9 0.8 Creatinine Kinase MB (Mass) 0.56 0.53 Basophils % 0.6 Nucleated Red Blood Cells % 0.0 Basophils # 0.1 Nucleated Red Blood Cells # 0.0 Triglycerides Level 267 H Cholesterol Level 150 LDL Cholesterol, Calculated 78 HDL Cholesterol 19 L Cholesterol/HDL Ratio 7.8 Thyroid Stimulating Hormone (TSH) 2.780 Medications Medications Current Medications Acetaminophen 500 mg 500 mg Q4H PRN PO PAIN AND OR ELEVATED TEMP Last administered on 10/22/16 07:29; Admin Dose 500 MG; Start 10/21/16 at 19:00 Potassium Chloride/Dextrose/ Sod Cl (D5-1/2ns + KCl 20 Meq) 1,000 ml @ 75 mls/ hr [id number] IV Last administered on 10/22/16 11:18; Admin Dose 75 MLS/HR; Start 10/21/16 at 19:00 Zolpidem Tartrate (Ambien) 5 mg HS PRN PO INSOMNIA Last administered on 23:46; Admin Dose 5 MG; Start 10/21/16 at 19:00 Ondansetron HCl (Zofran Inj) 4 mg Q6H PRN IV NAUSEA AND/OR VOMITING; Start 10/21 at 19:00 EDD GRANADOS October 22, 2016 14:44
[2016-10-22] MEDS ORDERED: SOD CHLORIDE 0.9% 1,000 ML IV SCH (14:53)
[2016-10-22] MEDS ORDERED: DC all Lovenox, Heparing, and Coumadin orders. XX SCH (15:00)
[2016-10-22] MEDS ORDERED: HOLD all METFORMIN and METFORMIN CONTAINING medications for 48 hours post procedure. Chec XX ONE (15:00)
[2016-10-22] MEDS ORDERED: morphine 2 MG INJ IV PRN ×2 (15:00→17:00)
[2016-10-22] MEDS: morphine 2 MG INJ IV PRN (15:57)
--- NOTE | 2016-10-22 16:38 | SP ---
DATE OF PROCEDURE: 10/22/2016 REFERRING PHYSICIAN: Dr. Grubbs and Dr. Banegas. REASON FOR EVALUATION: Complete heart block, symptomatic. PROCEDURE PERFORMED: 1. Emergency temporary pacemaker placement. 2. Single chamber pacemaker placement with fluoroscopy. 3. Upper extremity venogram. DEVICE INFORMATION: Implanted device is [employer] Assurity MRI pacemaker, serial #[id number], minali al #[id number]. RV lead is [employer] Tendril [id number], 58 cm lead, serial #[id number]. Acute t hresholds: R-wave is 9.9 millivolts, impedance 780 ohms, threshold 1.0 volts at 0.4 msec. Initial setting is VVI 70. DESCRIPTION OF PROCEDURE: The informed consent was obtained. The patient was brought into the geoscience laboratory technician in a fasting condition. His heart rate was 37. He was asymptomatic. The patient was placed o n the table. Anesthesiologist used MAC. During that time, the patient became asystolic. He receiv ed atropine and a decision was made to proceed with emergency temporary pacemaker placement. The l eft side of the groin area was prepped and draped in usual sterile fashion, 1% lidocaine was used fo r local analgesia. The patient had a femoral vein cannulated using modified Seldinger technique. A 5-Spanish sheath was placed in the pacer was advanced into the RV with the guidance of fluoroscopy. Appropriate pacing threshold was ascertained and the patient returned to spontaneous circulation wi th good oxygenation and a good blood pressure. Then the left side of the chest was reprepped and re draped and the patient received antibiotics prior to procedure. Then 1% lidocaine local anesthesia was induced. Using #10 scalpel, a 3 cm incision was made. Using cautery and blunt dissection, the pocket was created and the patient had a subclavian vein cannulated under fluoroscopic visualization through upper extremity venogram port and an 8-Spanish sheath was placed. The RV lead was advanced into RV apex. The lead was sutured to the RV apex. Some slack was left inside the lead and the she ath was pulled away. The lead was sutured to the muscle layer with 0 Ethibond suture. The lead was attached to the generator, pocket irrigated with antibiotic solution and entire system was placed i nside the pocket. Then, the skin was closed with multiple layers of 2-0 Vicryl sutures. The patient remained stable during the procedure. Because the patient was completely asystolic with no underly ing rhythm, I am going to leave the temporary pacemaker in for now overnight for monitoring and the temporary pacemaker will be removed tomorrow just to allow safer management of the device. The patient is to have a chest x-ray to rule out pneumothorax and follow expectantly. I would like to thank Dr. Banegas and Dr. Grubbs for referring this patient for my evaluation. Dictated By: TIFFANIE SEGURA/YAYA Conf#: [id number] DID#: [id number]
--- NOTE | 2016-10-22 18:46 | RADRPT ---
Echocardiogram Report Patient Name: MARIUM MEADE Gender: Male Date: 1955 Study Date: 22-Oct-2016 Consulting Nurse: Tona Finley RDCS Location: [address] [place] [address]. Physician: CYNTHIA CHOI Quality: Good Procedures: Transthoracic echocardiogram with complete 2D, M-Mode, and doppler examination. Indications: Shortness of breath. 2D/M Mode Doppler Measurement Value Normal Ranges Measurement Value Normal Ranges LVIDd 2D 5.1 3.5 - 5.6 cm AV Peak Sravan 2.0 m/sec LVIDs 2D 2.1 2.1 - 4.1 cm AV Peak PG 16.7 mmHg LVPWd 2D 1.0 0.6 - 1.1 cm AI Peak PG 149.7 mmHg IVSd 2D 0.9 0.6 - 1.1 cm AI Peak Sravan 6.1 m/sec AoR Diam 2D 2.8 2.0 - 3.7 cm AI PHT 1281.0 msec EDV 2D 125.1 cm3 LVOT Peak Sravan 1.2 m/sec ESV 2D 9.4 cm3 LVOT Peak PG 6.2 mmHg LA Dimen 2D 3.8 2.3 - 4.0 cm MV E Peak Sravan 0.7 m/sec MV A Peak Sravan 0.7 m/sec MV E/A 1.0 MV Decel Time 216 msec MV Decel [place] 3 MV E/A 1.0 TR Peak Sravan 1.6 m/sec TR Peak PG 10.7 mmHg RVSP 26.0 mmHg Findings Left Ventricle: Normal left ventricular systolic function. Normal left ventricular cavity size. Normal left ventricular wall thickness. Ejection fraction is visually estimated at 60 %. Right Ventricle: Normal right ventricular size. Normal right ventricular systolic function. Left Atrium: The left atrium is normal in size. Right Atrium: The right atrium is normal in size. Mitral Valve: Mitral valve leaflets appear mildly thickened. Mild mitral annular calcification. Trace mitral regurgitation. Aortic Valve: Trace to mild aortic valve regurgitation. Tricuspid Valve: Normal appearance of the tricuspid valve. Estimated peak PA systolic pressure 26 mmHg. There is trace to mild tricuspid regurgitation. Pulmonic Valve: Normal pulmonic valve appearance. There is trace pulmonic regurgitation. Pericardium: Normal pericardium with no significant pericardial effusion. Aorta: Normal aortic root. IVC: Dilated IVC without respiratory collapse consistent with elevated right atrial pressure. Conclusions 1.Normal left ventricular systolic function. Normal left ventricular cavity size. Normal left ventricular wall thickness. Ejection fraction is visually estimated at 60 %. 2.Mitral valve leaflets appear mildly thickened. Mild mitral annular calcification. Trace mitral regurgitation. 3.Normal appearance of the tricuspid valve. Estimated peak PA systolic pressure 26 mmHg. There is trace to mild tricuspid regurgitation. 4.Normal pulmonic valve appearance. There is trace pulmonic regurgitation. Electronically Signed By: Farhad Estrella 22-Oct-2016 18:46:07 -0700 Patient Name: MARIUM MEADE Study Date: 22-Oct-2016 [id number]
[2016-10-22] MEDS: CEFAZOLIN 1 GM/50 ML (PMX) 50 ML IVPB SCH (21:21)
[2016-10-22] MEDS: ACETAMINOPHEN 325 MG TAB PO PRN (23:09)
[2016-10-23] VITALS (17 sets, daily range): BP systolic 93–145; BP diastolic 56–84; PULSE 60–72; RESP 15–26
--- NOTE | 2016-10-23 02:02 | PN ---
DATE: 10/22/2016 SUBJECTIVE: Follow up on complete heart block. Patient did not have any episode of syncope, no rep orted chest pain or shortness of breath. Patient hemodynamically has remained stable. PHYSICAL EXAMINATION: GENERAL: The patient is conscious, awake, alert, fairly oriented. VITAL SIGNS: Stable, afebrile. HEENT: No eye discharge or redness. Oropharynx clear. NECK: No mass. CHEST: Fairly clear. CARDIOVASCULAR: S1, S2 normal. No murmur. ABDOMEN: Soft, nondistended, nontender. Bowel sounds present. EXTREMITIES: No leg edema. NEUROLOGIC: The patient is awake, alert with no gross focal deficit. IMPRESSION: Complete heart block. Patient will be taken to OR today for permanent pacemaker placem ent. Plan of care discussed with the patient's family. Further recommendations will depend on patient's hospital course and recommendation from cardiology. Dictated By: ZENIA KRISHNA/YAYA Conf#: [id number] DID#: [id number]
[2016-10-23] MEDS: CEFAZOLIN 1 GM/50 ML (PMX) 50 ML IVPB SCH ×2 (05:54→13:49)
[2016-10-23] MEDS: ACETAMINOPHEN 325 MG TAB PO PRN (05:55)
[2016-10-23 06:23] LABS: ADD SCAN DIFF NO
[2016-10-23 06:34] LABS: ABNORMAL IP MESSAGE 1; BASOPHIL # 0.1 10^3/ul (0.0-0.1); BASOPHILS % 0.5 % (0.0-2.0); EOSINOPHILS # 0.3 10^3/ul (0.0-0.5); EOSINOPHILS % 2.2 % (0.0-7.0); HEMATOCRIT 45.5 % (42.0-52.0); HEMOGLOBIN 14.9 g/dl (14.0-18.0); LYMPHOCYTES # 6.6 10^3/ul (0.8-2.9); LYMPHOCYTES % 47.1 % (15.0-51.0); MEAN CORPUSCULAR HEMOGLOBIN 29.3 pg (29.0-33.0); MEAN CORPUSCULAR HGB CONC 32.7 g/dl (32.0-37.0); MEAN CORPUSCULAR VOLUME 89.4 fl (82.0-101.0); MEAN PLATELET VOLUME 11.2 fl (7.4-10.4); MONOCYTE # 1.2 10^3/ul (0.3-0.9); MONOCYTES % 8.6 % (0.0-11.0); NEUTROPHIL # 5.8 10^3/ul (1.6-7.5); NEUTROPHILS % 41.3 % (39.0-77.0); PLATELET COUNT 174 10^3/UL (140-415); RED BLOOD COUNT 5.09 10^6/ul (4.70-6.10)
[2016-10-23 07:44] LABS: CALCIUM 8.8 mg/dl (8.4-10.2); CREATININE 1.22 mg/dl (0.61-1.24); POTASSIUM 4.3 mmol/L (3.5-5.1)
[2016-10-23] MEDS: morphine 2 MG INJ IV PRN ×2 (08:39→13:53)
--- NOTE | 2016-10-23 10:44 | RADRPT ---
PROCEDURE: XR Knee 3 Views. CLINICAL INDICATION: Right knee pain and swelling TECHNIQUE: AP, lateral and tunnel view of the right knee were obtained. The images reviewed on a PACS workstation. COMPARISON: None. FINDINGS: The osseous structures are intact. No destructive bony lesions are observed. Interosseous spaces a re normal. Soft tissues are unremarkable. IMPRESSION: Unremarkable right knee. If further characterization is needed CT or MRI could be helpful. If there is high clinical suspicion for traumatic injury, further evaluation with CT should be consi dered. RPTAT: AA .Michael Rios MD, MD Date Time Electronically viewed and signed by .Michael Rios MD, on 10/23/2016 10:44 .P/
--- NOTE | 2016-10-23 11:42 | CONS ---
Date/Time of Note Date/Time of Note DATE: 10/23/16 TIME: 11:35 Assessment/Plan Assessment/Plan Chief Complaint/Hosp Course IMPRESSION: 1. Heart block with episodes 2:1 block and complete heart block as well and escape rhythm in approximately high 30s to 40s with symptomatic bradycardia s/p PPM 2. Chest pain, assess for acute coronary syndrome.-negative troponin x 3/ improved symptoms 3. Shortness of breath, assess for congestive heart failure likely related to the patient's bradycardia. 4. Abnormal electrocardiogram, assess for acute coronary syndrome. 5. Hypertension, borderline. 6. Ongoing tobacco usage. 7. Bundle branch block. Recc: -Tele -serial ecg's -Continue abx prophylaxis Problems: Consultation Date/Type/Reason Admit Date/Time October 21, 2016 at 18:55 Initial Consult Date 10/21/2016 Type of Consultation: Cardiology Reason for Consultation Heart block Referring Provider: OLGA MCCRAY MD Exam/Review of Systems Vital Signs Vitals Vital Signs Date Time Temp Pulse Resp B/P Pulse Ox O2 Delivery O2 Flow Rate FiO2 10/23/16 09:37 72 10/23/16 09:00 18 138/78 96 Room Air 10/23/16 07:30 99.1 Intake and Output 10/22/16 10/22/16 10/23/16 15:00 23:00 07:00 Intake Total 600 ml 1245 ml 410 ml Output Total 1200 ml 400 ml 1000 ml Balance -600 ml 845 ml -590 ml Exam Review of Systems: CONSTITUTIONAL: No fevers, chills. PULMONARY: No sob CARDIOVASCULAR: No chest pain/palpitations GASTROINTESTINAL: No nausea/vomiting. GENITOURINARY: No hematuria/dysuria. MUSCULOSKELETAL: No myagias/arthalgias. PSYCHIATRIC: The patient denies depression. NEUROLOGIC: No weakness Constitutional: alert Psych: no complaints Head: normocephalic ENMT: mucosa pink and moist Neck: jvd, supple Respiratory: diminished breath sounds Cardiovascular: regular rate and rhythm Gastrointestinal: distended Musculoskeletal: nl extremities to inspection Neurological: confused Results Result Diagram: 10/23/16 0602 10/23/16 0602 Results 24 hrs Laboratory Tests Test 10/23/16 06:02 White Blood Count 14.0 #H Red Blood Count 5.09 Hemoglobin 14.9 Hematocrit 45.5 Mean Corpuscular Volume 89.4 Mean Corpuscular Hemoglobin 29.3 Mean Corpuscular Hemoglobin Concent 32.7 Red Cell Distribution Width 13.0 Platelet Count 174 # Mean Platelet Volume 11.2 H Neutrophils % 41.3 Lymphocytes % 47.1 Monocytes % 8.6 Eosinophils % 2.2 Basophils % 0.5 Nucleated Red Blood Cells % 0.0 Neutrophils # 5.8 Lymphocytes # 6.6 H Monocytes # 1.2 H Eosinophils # 0.3 Basophils # 0.1 Nucleated Red Blood Cells # 0.0 Sodium Level 139 Potassium Level 4.3 Chloride Level 111 H Carbon Dioxide Level 21 Anion Gap 11 Blood Urea Nitrogen 14 Creatinine 1.22 Glucose Level 96 Uric Acid 8.4 H Calcium Level 8.8 Medications Medications Current Medications Acetaminophen (Tylenol Tab) 500 mg Q4H PRN PO PAIN AND OR ELEVATED TEMP Last administered on 10/22/16 07:29; Admin Dose 500 MG; Start 10/21/16 at 19:00 Zolpidem Tartrate (Ambien) 5 mg HS PRN PO INSOMNIA Last administered on 23:46; Admin Dose 5 MG; Start 10/21/16 at 19:00 Ondansetron HCl (Zofran Inj) 4 mg Q6H PRN IV NAUSEA AND/OR VOMITING; Start 10/21 at 19:00 Morphine Sulfate (morphine) 2 mg Q4H PRN IV PAIN LEVEL 7-10 Last administered on 10/23/16 08:39; Admin Dose 2 MG; Start 10/22/16 at 15:00 Acetaminophen (Tylenol Tab) 650 mg Q4H PRN PO NON-CARDIAC PAIN LEVEL (1-3) Last administered on 10/23/16 05:55; Admin Dose 650 MG; Start 10/22/16 at 15:00 Morphine Sulfate 2 mg 2 mg Q2H PRN IV FOR NON CARDIAC PAIN (4-10) Last administered on 10/23/16 01:50; Admin Dose 2 MG; Start 10/22/16 at 15:00 Cefazolin Sodium (Ancef 1 Gm/50 ml (Pmx)) 50 ml @ 100 mls/hr Q8 IVPB Last administered on 10/23/16 05:54; Admin Dose 100 MLS/HR; Start 10/22/16 at 22:00 Miscellaneous Information (* Miscellaneous Pharmacy Order) DC all Lovenox, Hepari... ONCE XX ; Start 10/22/16 at 15:00 Diphenhydramine HCl (Benadryl) 25 mg Q6H PRN IV ITCHING Last administered on t 20:16; Admin Dose 25 MG; Start 10/22/16 at 20:30 DAVID GAGE October 23, 2016 11:42
[2016-10-23] MEDS ORDERED: POLYETHYLENE GLYCOL 17 GM PACKET PO ONE (13:30)
--- NOTE | 2016-10-23 14:36 | RADRPT ---
PROCEDURE: US DVT. CLINICAL INDICATION: Bilateral lower extremity pain and swelling. TECHNIQUE: Multiple longitudinal and transverse images of the bilateral lower extremity veins were obtained with rubio scale and color Doppler imaging. 2D grayscale measurements with compression, co isabella Doppler flow, and augmentation was performed. The calf veins were interrogated as well. COMPARISON: No prior studies are available for comparison. FINDINGS: The bilateral common femoral, superficial femoral and popliteal veins are normally compressible thro ughout. Color flow demonstrates normal filling of the vessel. Normal waveforms are visualized and there is normal response to augmentation. IMPRESSION: 1. No evidence of a deep vein thrombosis involving either lower extremity. RPTAT: [facility] Physician Cal Date Time Electronically viewed and signed by Physician Cal on 10/23/2016 14:36 /
[2016-10-23] MEDS ORDERED: KETOROLAC 30 MG INJ IV STA (14:59)
[2016-10-23] MEDS ORDERED: METHYLPREDNISOLONE 40 MG INJ IV ONE (15:00)
--- NOTE | 2016-10-23 15:15 | PDOCDIS ---
Discharge Instructions CONDITION Patient Condition: Good HOME CARE INSTRUCTIONS: Diet Instructions: RegularSpecial Diet: On Regualr diet ACTIVITY: Activity Restrictions: Avoid heavy lifting Bathing Restrictions: ShowerActivity Restrictions Comment: Do not use left arm in reaching items related to new pacemaker left chest FOLLOW UP/APPOINTMENTS Appointments Dr Garcia next week PMD next week for routine check up & for follow up on acute gouty arthritis ZENIA GRAHAM MD October 23, 2016 15:15
--- NOTE | 2016-10-23 16:15 | DS ---
DATE OF ADMISSION: 10/21/2016 DATE OF DISCHARGE: 10/23/2016 DISCHARGE DIAGNOSES: 1. Complete heart block, status post permanent pacemaker placement. 2. Acute flare-up of gouty arthritis. DISCHARGE MEDICATIONS: 1. Prednisone 20 mg once a day for 7 days. 2. Enteric-coated aspirin 375 mg twice a day for 7 days. FOLLOWUP: The patient is to follow up with Dr. Cruz next week. Follow up with PMD next week for routine checkup and followup on acute flare-up of gouty arthritis. CONDITION ON DISCHARGE: Stable. DIET: Regular. COMPLICATIONS: None. PROCEDURES DONE: Permanent pacemaker placement. REASON FOR ADMISSION AND HOSPITAL COURSE: The patient is a 61-year-old gentleman with history of sy ncope and also a history of occasional dizziness who was sent from the therapeutic activities services worker's office for [place]. The patient was noted to be in complete heart block. The patient was admitted for further evaluation and management. HOSPITAL COURSE: The patient was admitted with diagnosis of complete heart block and was seen by Dr Bonnie Estrella and Dr. Dogulas Cruz from cardiac standpoint. The patient underwent placement of permanent pacemaker placement which was uneventful; however, postoperatively, on the day of discharge, he dev eloped acute flare-up of gouty arthritis in his right knee which was treated with IV steroids and IV Toradol. PHYSICAL EXAMINATION: On the day of discharge VITAL SIGNS: Stable. The patient is afebrile. HEENT: No eye discharge or redness. NECK: No mass. CHEST: Fairly clear. CARDIOVASCULAR: S1, S2 normal. No murmur. ABDOMEN: Soft, nondistended, nontender. EXTREMITIES: No leg edema, no calf tenderness. Right knee is warm to touch, and range of motion is slightly painful. Pedal pulses palpable. No evidence of infection in any joint. LABORATORY DATA: WBC 14, hemoglobin 14.9, platelets 174. Sodium 139, potassium 4.3. Liver enzymes revealed mild evaluation. The patient would need outpatient followup. ____ level 8.4. Venous Dop pler negative. Knee x-ray negative. IMPRESSION: 1. Complete heart block status post permanent pacemaker placement. Continue to follow up with card iologist. 2. Acute gouty flare-up involving right knee. The patient does have pain in the right knee, and al so the right knee is warm to touch. The patient will be given IV steroids and IV Toradol prior to d ischarge. The patient's mild leukocytosis could be due to acute gouty flare-up. The patient also h as mildly elevated liver enzymes for which the patient will need to follow up with his PMD. The patient has been cleared by Cardiology for discharge. We will initiate discharge process. Dictated By: ZENIA KRISHNA/YAYA Conf#: [id number] DID#: [id number]
--- NOTE | 2016-10-23 16:39 | RADRPT ---
Vent Rate: 36 bpm RR Interval: 0 msec NM Interval: 0 msec QRS Duration: 144 msec QT Interval: 526 msec QTC Interval: 406 msec P-R-T [place]: 42 - 51 - 28 degrees Sinus rhythm with complete heart block and Idioventricular rhythm Right bundle branch block Abnormal ECG Electronically Signed By: Farhad Estrella [id number]
--- NOTE | 2016-10-23 16:40 | RADRPT ---
Vent Rate: 77 bpm RR Interval: 0 msec MS Interval: 0 msec QRS Duration: 200 msec QT Interval: 494 msec QTC Interval: 559 msec P-R-T [place]: 0 - -69 - 85 degrees Electronic ventricular pacemaker Electronically Signed By: Farhad Estrella [id number]
== END 2016-10-23 17:15 | disposition home or self-care (01) | DRG 244 ==
LOC: E/R 16:11 → ICU 18:55 → MS4 10-23 11:29
PROVIDERS: ADMIT Internal Medicine; ATTEND Internal Medicine
PROC: 0JH604Z Insertion of Pacemaker, Single Chamber into Chest Subcutaneous Tissue and Fascia, Open Approach (ICD-10-PCS; principal; 2016-10-22)
PROC: 02HK3JZ Insertion of Pacemaker Lead into Right Ventricle, Percutaneous Approach (ICD-10-PCS; 2016-10-22)
PROC: 5A1223Z Performance of Cardiac Pacing, Continuous (ICD-10-PCS; 2016-10-22)
DX: I44.2 Atrioventricular block, complete (principal); M10.061 Idiopathic gout, right knee; F17.210 Nicotine dependence, cigarettes, uncomplicated; R06.02 Shortness of breath; R03.0 Elevated blood-pressure reading, without diagnosis of hypertension; Q24.9 Congenital malformation of heart, unspecified
CPT/HCPCS: 36415; 71010; 73562; 80048; 80053; 80061; 80306; 82550; 82553; 83735; 84443; 84484; 84560; 85025; 85610; 85730; 87081; 93005; 93306; 93970; C1786; C1894; C1898; C2629; J0461; J0690; J1200; J1265; J1885; J2270; J2920; J3010; J3480; J7030; J7040; Q9967